=== PATIENT | male | born 1935 | race Caucasian/White ===

== ENCOUNTER 2020-03-10 10:06 | Emergency (ER) | payer MEDICARE ==
[2020-03-10] MEDS ORDERED: Lidocaine 2% 20 ml MDV ONE (10:16)
[2020-03-10] MEDS ORDERED: Adacel (T-DAP) 0.5 ML SYRINGE ONE (10:17)
[2020-03-10] MEDS ORDERED: Bacitracin 1 PK ONE (10:27)
== END 2020-03-10 10:40 | disposition home or self-care (01) ==
LOC: MADERS 10:06
DX: S61.012A Laceration without foreign body of left thumb without damage to nail, initial encounter (principal); I10 Essential (primary) hypertension; Z79.899 Other long term (current) drug therapy; W26.0XXA Contact with knife, initial encounter
CPT/HCPCS: 12001; 90471; 90715

== ENCOUNTER 2020-04-26 14:24 | Emergency (ER) | payer MEDICARE | END 2020-04-26 14:50 | disposition home or self-care (01) | LOC: MADERS 14:24 | DX: H66.012 Acute suppurative otitis media with spontaneous rupture of ear drum, left ear (principal); I10 Essential (primary) hypertension; Z79.899 Other long term (current) drug therapy | CPT/HCPCS: 99282 ==

== ENCOUNTER 2020-10-14 06:42 | Emergency (ER) | payer MEDICARE ==
[2020-10-14 07:34] LABS: #Lymphocytes 0.9 thou/uL (1.20-3.40); #Monocytes 0.6 thou/uL (0.11-0.59); #Neutrophils 4.6 thou/uL (1.40-6.50); %Basophils 0.5 % (0.0-1.0); %Lymphocytes 14.9 % (21.0-51.0); %Monocytes 9.6 % (0.0-10.0); Hemoglobin 14.2 g/dL (14.0-18.0); Mean Corpuscular HGB CONC 31.8 g/dL (32.0-36.0); Mean Corpuscular Hemoglobin 28.1 pg (27.0-31.0); Mean Corpuscular Volume 88.2 fL (78.0-98.0); Mean Platelet Volume 6.9 fL (7.4-10.4); Platelet Count 158 thou/uL (130-400); Red Blood Cell (RBC) Count 5.04 mill/uL (4.70-6.10); White Blood Cell (WBC) Count 6.1 thou/uL (4.8-10.8)
[2020-10-14 07:53] LABS: ALT (SGPT) 26 U/L (8-55); AST (SGOT) 26 U/L (5-34); Albumin 3.7 g/dL (3.4-4.8); Alkaline Phosphatase 64 U/L (40-110); Anion Gap 17 mmol/L (10-20); BUN (Urea Nitrogen) 44 mg/dL (8.4-25.7); Bilirubin, Total 0.5 mg/dL (0.2-1.2); Calc. Creatinine Clearance 0 mL/min (70-130); Calcium 8.6 mg/dL (7.8-10.44); Carbon Dioxide 17 mmol/L (23-31); Chloride 109 mmol/L (98-107); Globulin 3.2 g/dL (2.4-3.5); Glucose 95 mg/dL (83-110); Potassium 4.1 mmol/L (3.5-5.1); Protein, Total 6.9 g/dL (5.8-8.1); Sodium 139 mmol/L (136-145)
[2020-10-14] MEDS ORDERED: Sodium Chloride 0.9% 500 ML BAG ONE (08:37)
--- NOTE | 2020-10-14 08:45 | CT ---
CT Abdomen Pelvis WO Con HISTORY: Left-sided abdomen pain and diarrhea. COMPARISON: None. FINDINGS: Small pericardial effusion is noted. There are patchy groundglass lung opacities seen in th e lung bases, this would raise the possibility of Covid pneumonia or infiltrates related to aspiration. Coronary calcifications are noted. The liver and spleen appear unremarkable. The pancreas is atrophic. The gallbladder has been removed. Right and left adrenal glands and right and left kidneys are normal in size. There is cortical thinni ng involving both kidneys no obstruction. No renal calculi. No significant periaortic or mesenteric adenopathy. Patient is undergone a right hemicolectomy. There is an anastomotic suture line at the mi d transverse colon level. Minimal diverticulosis of the descending colon is seen and mild changes of the sigmoid colon. There is some fluid within the rectosigmoid region consistent with history of d iarrhea. No free fluid. No pelvic lymphadenopathy or mass. IMPRESSION: 1. Bilateral lower lobe groundglass infiltrates aspiration or Covid pneumonia would be considerations . 2. Small hiatal hernia and small pericardial effusion. 3. Colonic diverticulosis. Postop change.
[2020-10-14] MEDS ORDERED: Loperamide HCl 2 MG CAP ONE (11:26)
[2020-10-14] MEDS ORDERED: metroNIDAZOLE 250 MG TAB ONE ×2 (11:26→11:27)
[2020-10-14] MEDS ORDERED: cefTRIAXone\\ROCEPHIN 1 GM VIAL ONE (11:47)
[2020-10-14] MEDS ORDERED: Sodium Chloride 0.9% 0 ML ONE (11:47)
[2020-10-14] MEDS ORDERED: Sodium Chloride 0.9% 1,000 ML ONE (11:48)
[2020-10-14 12:02] LABS: CKMB 2.8 ng/mL (0-6.6)
[2020-10-14] MEDS ORDERED: Azithromycin 500 MG VIAL ONE (12:21)
[2020-10-14] MEDS ORDERED: Sodium Chloride 0.9% 100 ML ONE (12:22)
[2020-10-14 12:27] LABS: Lactic Acid 1.9 mmol/L (0.5-2.2)
[2020-10-14 14:15] LABS: Bilirubin Negative (Negative); Blood, Urine Moderate (Negative); Clarity Clear (Clear); Glucose, Urine (Dipstick) Negative (Negative); Ketone, Urine Negative (Negative); Leukocyte Negative (Negative); Nitrite Negative (Negative); Protein, Urine (Dipstick) > or equal to 300 mg/dL (Neg-Trace); Urobilinogen 0.2 mg/dL (Less than 2)
[2020-10-14 14:30] LABS: Specific Gravity, Urine 1.019 (1.002-1.036)
[2020-10-14 14:31] LABS: Bacteria/HPF Rare-Few HPF (None Seen); RBC/HPF 0-3 HPF (0-3); Squamous Epithelial 0-3 HPF (0-3); WBC/HPF 0-3 HPF (0-3)
[2020-10-16 12:48] LABS: SARS-CoV-2 PCR by NAA DETECTED (NotDetected)
== END 2020-10-14 16:15 | disposition home or self-care (01) ==
LOC: MADERS 06:42
DX: U07.1 COVID-19 (principal); J12.82 Pneumonia due to coronavirus disease 2019; I12.9 Hypertensive chronic kidney disease with stage 1 through stage 4 chronic kidney disease, or unspecified chronic kidney disease; N18.9 Chronic kidney disease, unspecified; E86.0 Dehydration; R19.7 Diarrhea, unspecified; Z79.899 Other long term (current) drug therapy; Z79.82 Long term (current) use of aspirin
CPT/HCPCS: 71045; 74176; 80053; 82553; 83605; 84484; 85025; 85379; 86140; 87040; 87045; 87046; 87324; 87427 ×2; 87449 ×2; 87804 ×2; U0003; U0005; 36415; 81003; 81015; 87635; 96365; 96375; J0456; J0696; J3490; J7030; J7050